=== PATIENT | female | born 1980 | race Caucasian/White ===

== ENCOUNTER → 2016-06-02 | Outpatient (CLI) | payer OTHER ==
--- NOTE | 2016-06-02 16:13 | RAD ---
PROCEDURE MRI cervical spine without contrast. HISTORY Left arm radiculopathy for 3 months, history degenerative disc disease TECHNIQUE Sagittal and axial T2, sagittal T1, sagittal STIR images were acquired of the cervical spine. Contrast: None COMPARISON None FINDINGS Cervical vertebral body stature and AP alignment are maintained. There is no significant marrow edema. There is mild to moderate degenerative disc disease C4-5 and C5-C6, mild disc desiccation C6-7 and C3-4. Cervical cord caliber is within normal limits without significant focal signal abnormality. C2-3: Spinal canal and neural foramina are adequate C3-C4: Spinal canal and neural foramina are adequate. C4-5: There is negligible disc osteophyte complex greater in the lateral recesses. Spinal canal and neural foramina are adequate. C5-C6: There is negligible disc osteophyte complex. Central canal is minimally narrowed to 9 millimeters. There is mild uncovertebral degenerative change greater on the left. Neural foramina are not significantly narrowed. C6-7: There is minimal bulge/protrusion greater in the far left lateral recess. Central canal is minimally narrowed to 8-9 millimeters with a somewhat greater degree of left lateral recess stenosis. There is left uncovertebral degenerative change. Right neural foramen is adequate, moderate narrowing of the left neural foramen. C7-T1: There is a shallow posterior central protrusion, central canal minimally narrowed to 9-10 millimeters. Neural foramina are adequate. IMPRESSION 1. There is mild spinal stenosis C5-C6 to C7-T1, somewhat greater degree of left lateral recess stenosis C6-7 by bulge/protrusion. 2. There is mild to moderate degenerative disc disease C4-5 and C5-C6, minimally at C6-7. There is mild spondylosis. 3. There is moderate narrowing of the left C6-7 neural foramen. Electronically signed by: Koffi Valdez MD (Jun 02, 2016 16:11:08)
--- NOTE | 2016-06-02 16:46 | RAD ---
PROCEDURE MRI thoracic spine without contrast HISTORY Left arm radiculopathy for 3 months, history of degenerative disc disease TECHNIQUE Multiplanar, multi sequential non contrast MR imaging was performed of the thoracic spine. Contrast: None COMPARISON None FINDINGS Thoracic vertebral body stature and AP alignment are adequate. There is no significant focal marrow edema. Thoracic cord caliber is within normal limits without convincing focal signal abnormality allowing for artifact. There is no focal posterior disc abnormality of the thoracic spine other than protrusion at C7-T1 as described in detail for the cervical spine MRI exam performed at the same time. There is no significant thoracic spinal stenosis or neural foramina compromise. IMPRESSION There is no significant thoracic spinal stenosis or neural foramina compromise. Electronically signed by: Koffi Valdez MD (Jun 02, 2016 16:44:51)
== END | disposition home or self-care (01) ==
LOC: MRI 14:52
PROVIDERS: ATTEND Family Medicine
DX: M51.34 Other intervertebral disc degeneration, thoracic region (principal)
CPT/HCPCS: 72141; 72146